=== PATIENT | female | born 1955 | race Caucasian/White ===

== ENCOUNTER 2020-05-28 10:38 | Outpatient (CLI) | payer BC, SELFPAY ==
[2020-05-29 01:03] LABS: SARS-CoV-2 RNA PCR Negative
== END 2020-05-28 10:39 | disposition home or self-care (01) ==
LOC: CHSLAB 10:44
PROVIDERS: PCP Internal Medicine; Visit Provider Internal Medicine
DX: Z20.828 Contact with and (suspected) exposure to other viral communicable diseases (principal)
CPT/HCPCS: 87635; C9803; U0003

== ENCOUNTER 2020-10-01 10:43 | Outpatient (CLI) | payer MEDICARE, BC, SELFPAY ==
--- NOTE | ~2020-10-01 | XR_ITS ---
XR lumbar spine 2-3V DATE: 10/01/2020 11:09 INDICATION: Low back pain for one month TECHNIQUE: AP, lateral, coned lateral lumbosacral views COMPARISON: 01/20/2014 lumbar spine FINDINGS: Slight dextroscoliosis of the lumbar spine. Diffuse osteopenia. Normal alignment of the lumbar spine. No fracture or bone destruction. The lumbar pedicles are intact . There is mild loss of interspace height at L4-5. Minimal degenerative spurring of the lumbar spine. The sacroiliac joints appear normal. Status post cholecystectomy. Radiopaque sutures are noted in the left upper quadrant. IMPRESSION: Osteopenia Slight dextroscoliosis Mild degenerative change, primarily at L4-5 Reviewed, dictated and finalized at location A.
--- NOTE | ~2020-10-01 | XR_ITS ---
EXAMINATION: XR sacrum coccyx min 2V DATE: 10/01/2020 11:09 INDICATION: One month of midline low back pain TECHNIQUE: Frontal, angled frontal and lateral views of the sacrum and coccyx were obtained. COMPARISON: Lumbar spine radiographs dated 10/01/2020 FINDINGS: Alignment is normal. Sacral arches are intact. No fractures. Bilateral sacroiliac joint spaces are no rmal. Mild bilateral hip osteoarthritis Severe facet osteoarthritis bilaterally at L5-S1. A few phleb oliths in the pelvis. IMPRESSION: 1. Normal sacrum and bilateral sacroiliac joints. Reviewed, dictated and finalized at location B.
== END 2020-10-01 10:44 | disposition home or self-care (01) ==
PROVIDERS: PCP Internal Medicine; Visit Provider Internal Medicine
DX: S39.92XA Unspecified injury of lower back, initial encounter (principal); M53.3 Sacrococcygeal disorders, not elsewhere classified
CPT/HCPCS: 72100; 72220

== ENCOUNTER 2020-10-19 07:56 | Outpatient (CLI) | payer MEDICARE, BC, SELFPAY ==
--- NOTE | ~2020-10-19 | DEXA_ITS ---
Bone Density Report Name: Adilia Pruett Age: 65 Sex: Female Ethnicity: White Date of : 1955 Indication: postmenopausal; screening for osteoporosis; Referring Provider: Ponce Chen Study: Bone densitometry was performed. Exam Date: October 19, 2020 Accession number: [id number] Bone Density: Region BMD T-score Z-score Classification AP Spine(L1-L4) 1.279 2.1 3.9 Normal Femoral Neck (Left) 0.750 -0.9 0.6 Normal Total Hip (Left) 0.969 0.2 1.5 Normal Femoral Neck (Right) 0.826 -0.2 1.3 Normal Total Hip (Right) 1.038 0.8 2.0 Normal Femoral Neck Mean 0.788 -0.6 1.0 Normal Total Hip Mean 1.004 0.5 1.7 Normal World Health Organization criteria for BMD impression classify patients as: Normal (T-score at or above -1.0), Osteopenia (T-score between -1.0 and -2.5), or Osteoporosis (T-score at or below -2.5). 10-year Fracture Risk: FRAX not reported because: All T-scores for Spine Total, Hip Total, Femoral Neck at or above -1.0 Clinical Information Provided by Patient: Has used the following medications: Vitamin D, Calcium Patient maximum height was 63 Menopause Age: 50 No regular weight bearing exercise Drinks caffeinated beverages Onset of menses at age 15 Impression: The patient has normal bone mass. Discussion: BONE DENSITY IS ABOVE THE MINIMUM DESIRABLE LEVEL AT ALL SKELETAL SITES TESTED. This patient?s bone mineral density is above the minimum desirable level (T-score -1.0 or better) at all sites measured. The patient should follow a healthful lifestyle (good nutrition with adequate calcium and vitamin D, and appropriate weight-bearing exercise). Follow-Up: Consider repeating this study in 5 years or sooner if there is some new clinical indication. Reported by: Dr. Bridger Clement on 10/19/2020 8:35:00 AM. Reviewed, dictated and finalized at [facility]
--- NOTE | ~2020-10-19 | MM_ITS ---
EXAMINATION: MM screening venessa BI w cathi HISTORY: Screening mammogram TECHNIQUE: Craniocaudal and mediolateral oblique 3-D tomosynthesis images were obtained and synthetic 2-D images were generated. CAD analysis was submitted and interpreted. COMPARISON: No prior mammogram is available for comparison at this institution. BREAST PARENCHYMAL COMPOSITION: There are scattered areas of fibroglandular density. FINDINGS: There is no evidence of suspicious mass, calcification, or architectural distortion to sugg est malignancy in either breast. There has been no suspicious interval change. IMPRESSION: 1. No mammographic evidence of malignancy. 2. Recommend routine screening mammography in one year. BI-RADS Category 1: Negative Reviewed, dictated and finalized at location A.
== END 2020-10-19 07:57 | disposition home or self-care (01) ==
LOC: CHSIMG 07:58
PROVIDERS: PCP Internal Medicine; Visit Provider Internal Medicine
DX: Z78.0 Asymptomatic menopausal state (principal); Z12.31 Encounter for screening mammogram for malignant neoplasm of breast
CPT/HCPCS: 77063; 77067; 77080

== ENCOUNTER 2022-09-14 10:02 | Outpatient (CLI) | payer MEDICARE, SELFPAY ==
--- NOTE | ~2022-09-14 | XR_ITS ---
EXAMINATION: XR chest 2V 09/14/2022 10:57 INDICATION: Persistent cough. Covid infection. PROCEDURE: 2 view chest COMPARISON: Comparison to multiple prior studies sequentially, with oldest reviewed study dated 11/27. FINDINGS: The lungs are clear. The cardiomediastinal silhouette is within normal limits. There are no pleural effusions. There is no pneumothorax suspected. IMPRESSION: 1: NO ACUTE CARDIOPULMONARY DISEASE. Reviewed, dictated and finalized at location L. [employer]
[2022-09-14 10:41] LABS: Eosinophils Absolute Auto 0.06 K/mm3 (0.02-0.50); Eosinophils Percent Auto 1.4 % (1.0-6.0); Hematocrit 41.1 % (35.0-42.0); Hemoglobin 13.1 g/dL (11.7-13.8); Immature Granulocyte Absolute 0.01 K/mm3 (0.00-0.00); Immature Granulocyte Percent A 0.2 % (0.0-0.0); Lymphocytes Absolute Auto 1.58 K/mm3 (1.10-4.50); Lymphocytes Percent Auto 36.5 % (18.0-42.0); Mean Corpuscular HGB Conc 31.9 g/dL (32.0-36.0); Mean Corpuscular Hemoglobin 25.6 pg (27.0-31.0); Mean Corpuscular Volume 80.4 fL (78.0-102.0); Mean Platelet Volume 9.8 fl (9.2-11.8); Monocytes Absolute Auto 0.24 K/mm3 (0.10-0.90); Monocytes Percent Auto 5.5 % (2.0-11.0); Neutrophils Absolute Auto 2.4 K/mm3 (1.7-7.2); Neutrophils Percent Auto 56.4 % (50.0-70.0); Platelet Count Result 204 K/mm3 (150-420); Red Blood Count 5.11 M/mm3 (4.20-5.40); White Blood Count 4.3 K/mm3 (4.8-10.8)
[2022-09-14 12:02] LABS: Alanine Aminotransferase 24 U/L (14-59); Albumin Level 3.3 g/dL (3.4-5.0); Alkaline Phosphatase 108 U/L (46-116); Anion Gap 6 mmol/L (8-16); Aspartate Amino Transferase 14 U/L (15-37); Bilirubin,Total 0.3 mg/dL (0.00-1.00); Blood Urea Nitrogen 12 mg/dL (7-18); Calcium 8.4 mg/dL (8.5-10.1); Carbon Dioxide 32 mmol/L (21-32); Chloride 106 mmol/L (98-108); Estimated Glomerular Filt Rate > 60; Glucose 93 mg/dL (70-99); Osmolality Calculated 297 mOsm/kg (285-295); Potassium 4.9 mmol/L (3.5-5.1); Sodium 144 mmol/L (136-145)
[2022-09-14 12:07] LABS: CRP < 0.5 mg/dL (0.0-0.9)
== END 2022-09-14 10:03 | disposition home or self-care (01) ==
LOC: CHSLAB 10:06 → CHSIMG 10:07
PROVIDERS: PCP Internal Medicine; Visit Provider Internal Medicine
DX: J18.9 Pneumonia, unspecified organism (principal); U07.1 COVID-19
CPT/HCPCS: 36415; 71046; 80053; 85025; 86140

== ENCOUNTER 2022-09-22 11:41 | Outpatient (CLI) | payer MEDICARE, SELFPAY ==
[2022-09-22 12:09] LABS: Basophils Absolute Auto 0.02 K/mm3 (0.00-0.10); Basophils Percent Auto 0.2 % (0.0-1.0); Eosinophils Absolute Auto 0.05 K/mm3 (0.02-0.50); Eosinophils Percent Auto 0.4 % (1.0-6.0); Hematocrit 44.3 % (35.0-42.0); Hemoglobin 14.3 g/dL (11.7-13.8); Immature Granulocyte Absolute 0.15 K/mm3 (0.00-0.00); Immature Granulocyte Percent A 1.1 % (0.0-0.0); Lymphocytes Percent Auto 20.6 % (18.0-42.0); Mean Corpuscular HGB Conc 32.3 g/dL (32.0-36.0); Mean Corpuscular Hemoglobin 25.7 pg (27.0-31.0); Mean Corpuscular Volume 79.7 fL (78.0-102.0); Monocytes Absolute Auto 0.55 K/mm3 (0.10-0.90); Monocytes Percent Auto 4.2 % (2.0-11.0); Neutrophils Absolute Auto 9.7 K/mm3 (1.7-7.2); Neutrophils Percent Auto 73.5 % (50.0-70.0); Platelet Count Result 279 K/mm3 (150-420); Red Blood Count 5.56 M/mm3 (4.20-5.40); Red Cell Distribution Width 13.2 % (11.6-14.4); White Blood Count 13.1 K/mm3 (4.8-10.8)
[2022-09-22 12:22] LABS: D Dimer 0.48 mg/L (0.19-0.50)
[2022-09-22 12:47] LABS: Alanine Aminotransferase 22 U/L (14-59); Albumin Level 3.2 g/dL (3.4-5.0); Alkaline Phosphatase 120 U/L (46-116); Anion Gap 7 mmol/L (8-16); Aspartate Amino Transferase 18 U/L (15-37); Bilirubin,Total 0.3 mg/dL (0.00-1.00); Blood Urea Nitrogen 26 mg/dL (7-18); Calcium 8.2 mg/dL (8.5-10.1); Carbon Dioxide 32 mmol/L (21-32); Chloride 104 mmol/L (98-108); Estimated Glomerular Filt Rate > 60; Glucose 108 mg/dL (70-99); Osmolality Calculated 301 mOsm/kg (285-295); Potassium 4.1 mmol/L (3.5-5.1); Sodium 143 mmol/L (136-145); Total Protein 5.8 g/dL (6.4-8.2)
== END 2022-09-22 11:42 | disposition home or self-care (01) ==
LOC: CHSLAB 11:42
PROVIDERS: PCP Internal Medicine; Visit Provider Internal Medicine
DX: R06.00 Dyspnea, unspecified (principal); R53.83 Other fatigue; U07.1 COVID-19
CPT/HCPCS: 36415; 80053; 85025; 85380

== ENCOUNTER 2023-09-26 14:14 | Outpatient (CLI) | payer MEDICARE, SELFPAY ==
--- NOTE | ~2023-09-26 | XR_ITS ---
EXAMINATION: XR knee LT 3V DATE: 09/26/2023 14:40 INDICATION: Bilateral knee pain post fall TECHNIQUE: 1. AP, lateral and sunrise views of the left knee were obtained. 2. AP, lateral and sunrise views of the right knee were obtained. The bilateral patellar views were o btained on a single image. COMPARISON: None. FINDINGS: Bone alignment is normal at both knees. No fractures. There is bilateral mild patellofemoral osteoart hritis with joint spaces are slightly more prominent on the left. Tiny heterotopic ossicle along the medial margin of the right medial tibial metaphysis projecting over and aligned along the axis of the medial collateral ligament suggesting sequela of chronic sprain. There small enthesophytes along the anterior margin of the patella. Soft tissues are unremarkable with no joint effusions at either knee . IMPRESSION: 1. Mild bilateral patellofemoral osteoarthritis. No joint effusion or acute osseous abnormality at ei ther knee. 2. Small heterotopic ossicle projecting over the right medial collateral ligament which could represe nt sequela of chronic sprain. Reviewed, dictated and finalized at location B. IMPRESSION: 1. Mild bilateral patellofemoral osteoarthritis. No joint effusion or acute oss eous abnormality at either knee. 2. Small heterotopic ossicle projecting over the right medial collateral ligame nt which could represent sequela of chronic sprain.
--- NOTE | ~2023-09-26 | XR_ITS ---
XR knee RT 3V 09/26/2023 14:40 Indication: Bilateral knee pain. Status post fall. Procedure: 2 view right knee Comparison: No prior studies for comparison. Findings: There is mild osteoarthritis of the right hip. No fracture or traumatic malalignment. No si gnificant joint effusion. No foreign bodies. Impression: 1: Mild osteoarthritis of the right knee. Reviewed, dictated and finalized at location A. Impression: 1: Mild osteoarthritis of the right knee.
== END 2023-09-26 14:15 | disposition home or self-care (01) ==
LOC: CHSIMG 14:18
PROVIDERS: PCP Internal Medicine; Visit Provider Internal Medicine
DX: M25.561 Pain in right knee (principal); M25.562 Pain in left knee; M17.0 Bilateral primary osteoarthritis of knee
CPT/HCPCS: 73562

== ENCOUNTER 2023-10-25 01:24 | Day surgery (SDC) | payer MEDICARE, SELFPAY ==
[2023-10-09 13:06] VITALS: BMI 34.9
[2023-10-25 08:34] VITALS: BP 157/83; PULSE 72; RESP 18; TEMP 36.1; O2SAT 99
--- NOTE | 2023-10-25 08:37 | PM.IMHP ---
H&P: HPI History of Present Illness Date/Time: 10/25/23 08:37 Chief Complaint: family history of colon cancer Narrative: this is a 60 old woman who presents for colonoscopy. Her last colonoscopy was about 10 years ago. She recently found out sister had colon cancer was treated with partial colectomy. She denies any hematochezia or melena. Review of Systems Review of Systems: All systems reviewed & are unremarkable except as noted in HPI and below Constitutional: Constitutional: Denies chills, Denies fever(s), Denies headache(s) and Denies weight loss Eyes: Eyes: Denies change in vision ENT: Denies dizziness, Denies headache(s), Denies neck mass and Denies throat swelling Cardiovascular: Cardiovascular: Denies chest pain, Denies lightheadedness and Denies dyspnea Respiratory: Respiratory: Denies cough, Denies dyspnea and Denies wheezing Gastrointestinal: Gastrointestinal: Denies abdominal pain, Denies change in bowel habits, Denies nausea and Denies vomiting Genitourinary: Genitourinary: Denies hematuria and Denies dysuria Musculoskeletal: Musculoskeletal: Reports as per HPI Integumentary/Breasts: Skin/Breast: Reports as per HPI Neurologic: Denies dizziness and Denies headache(s) Allergic/Immunologic: Allergic/Immunologic: Denies throat swelling and Denies wheezing PMF Past Medical History Medical History History of gastrectomy LISBETH (obstructive sleep apnea) Surgical History Surgical History History of repair of hiatal hernia Hx of appendectomy Hx of cholecystectomy Family History Family History Father Heart disease Crohn's disease Mother Hypertension Grandparent Diabetes mellitus Heart disease Other Carcinoma of colon Social History Social History Smoking status: Never smoker Alcohol intake: never Substance use: never Substance use type: does not use Living arrangements: with family Spiritual care concerns: No Meds Home Medications and Allergies Home Medications Medication Instructions Recorded Confirmed Type albuterol sulfate 90 mcg/actuation 1 inh inhalation Q4H 11/21/22 10/25/23 History aerosol inhaler dexlansoprazole 60 mg 60 mg PO DAILY 11/21/22 10/25/23 History capsule,biphase delayed release (Dexilant) montelukast 10 mg tablet 10 mg PO DAILY 11/21/22 10/25/23 History multivitamin 1 tablet PO DAILY 11/21/22 10/25/23 History ascorbate calcium (vitamin C) 500 500 mg PO DAILY 12/01/22 10/25/23 History mg tablet inhalational spacing device #1 ea 12/01/22 10/25/23 Rx budesonide-formoterol HFA 160 2 puff inhalation Q12H #10.2 grams 01/18/23 10/25/23 Rx mcg-4.5 mcg/actuation aerosol inhaler (Symbicort) Allergies Allergy/AdvReac Type Severity Reaction Status Date / Time amoxicillin [From Augmentin] AdvReac Intermediate Rash Verified 10/25/23 08:29 clavulanic acid AdvReac Intermediate Nausea Verified 10/25/23 08:29 [From Augmentin] Exam Const: General: no acute distress and alert Orientation/consciousness: patient oriented x3 HENMT: Head: normocephalic and atraumatic Ears: hearing grossly normal bilaterally Face/Nose/Sinus: Normal nares present Mouth: Yes Normal oral and palatal mucosa present Eyes: Periorbital: periorbital findings normal Sclera: sclerae normal EOM: EOMs intact bilaterally Neck: Neck: normal visual inspection, no lymphadenopathy and trachea midline Chest: Chest palpation & inspection: normal inspection of the chest Resp: Effort & Inspection: normal respiratory effort Auscultation: clear to auscultation bilaterally Cardio: Jugular venous distension: no JVD Rate: regular rate Rhythm: regular rhythm Heart sounds: S1 normal heart sound present and S2 normal heart sound present Peripheral
[2023-10-25] MEDS: LACTATED RINGERS 1,000 ML 150 ML IV CONT (08:46)
--- NOTE | 2023-10-25 09:06 | WPDANESEPPF ---
Anes - Initial Pre Proc Eval Procedure: Operation Date: 10/25/23 10:00 Proposed Procedures p Screening Colonoscopy - Sukhi Marshall DO Date/Time: 10/25/23 09:06 Surgeon: Sukhi Marshall DO Pre Op Diagnosis: neoplasm screening Patient Data Age: 68 Gender: F Height: 1.57 m Weight: 94.5 kg Last Vital Signs Temp 97.0 F L 10/25/23 08:34 Pulse 72 10/25/23 08:34 Resp 18 10/25/23 08:34 BP 157/83 H 10/25/23 08:34 Pulse Ox 99 10/25/23 08:34 O2 Del Method Room Air 10/25/23 08:34 Allergies Allergy/AdvReac Type Severity Reaction Status Date / Time amoxicillin [From Augmentin] AdvReac Intermediate Rash Verified 10/25/23 08:29 clavulanic acid AdvReac Intermediate Nausea Verified 10/25/23 08:29 [From Augmentin] Home Medications Medication Instructions Recorded Confirmed Type albuterol sulfate 90 mcg/actuation 1 inh inhalation Q4H 11/21/22 10/25/23 History aerosol inhaler dexlansoprazole 60 mg 60 mg PO DAILY 11/21/22 10/25/23 History capsule,biphase delayed release (Dexilant) montelukast 10 mg tablet 10 mg PO DAILY 11/21/22 10/25/23 History multivitamin 1 tablet PO DAILY 11/21/22 10/25/23 History ascorbate calcium (vitamin C) 500 500 mg PO DAILY 12/01/22 10/25/23 History mg tablet inhalational spacing device #1 ea 12/01/22 10/25/23 Rx budesonide-formoterol HFA 160 2 puff inhalation Q12H #10.2 grams 01/18/23 10/25/23 Rx mcg-4.5 mcg/actuation aerosol inhaler (Symbicort) Patient hx anesthesia problems: none Family hx anesthesia problems: none Results Review: All pre-operative results and documents have been reviewed as part of the pre-operative evaluation. [facility] Past Medical History Medical History History of gastrectomy LISBETH (obstructive sleep apnea) Surgical History Surgical History History of repair of hiatal hernia Hx of appendectomy Hx of cholecystectomy Family History Family History Father Heart disease Crohn's disease Mother Hypertension Grandparent Diabetes mellitus Heart disease Other Carcinoma of colon Social History Social History Smoking status: Never smoker Alcohol intake: never Substance use: never Substance use type: does not use Living arrangements: with family Spiritual care concerns: No Anes - Eval Final PreProcedure Day of Procedure 10/25/23 09:06 Patient weight: obese Heart: regular rate and rhythm Lungs: clear to auscultation Airway: Mallampati scale class II Neurological: alert and oriented Last oral intake: >/= 8 hours ASA classification: III Emergent: no Anesthetic plan: proceed Anesthesia type and monitoring: general GIVS and standard monitoring Results Review: All pre-operative results and documents have been reviewed as part of the pre-operative evaluation. Informed Consent: The patient's anesthetic plan and its attendant risks and benefits were discussed with the patient/family/POA. Questions were solicited and answers provided to the satisfaction of the patient/family/POA.
[2023-10-25 09:51] VITALS: BP 132/63; PULSE 72; RESP 13; O2SAT 100
[2023-10-25 10:01] VITALS: BP 143/72; PULSE 68; RESP 19; O2SAT 100
[2023-10-25 10:11] VITALS: BP 157/75; PULSE 71; RESP 18; O2SAT 100
== END 2023-10-25 10:20 | disposition home or self-care (01) ==
PROVIDERS: PCP Internal Medicine; Visit Provider Surgery
PROC: 0DJD8ZZ Inspection of Lower Intestinal Tract, Via Natural or Artificial Opening Endoscopic (ICD-10-PCS; CPT 45378; principal; 2023-10-25 10:00)
DX: Z12.11 Encounter for screening for malignant neoplasm of colon (principal); K62.1 Rectal polyp; G47.33 Obstructive sleep apnea (adult) (pediatric); E66.9 Obesity, unspecified; Z68.38 Body mass index [BMI] 38.0-38.9, adult; Z79.51 Long term (current) use of inhaled steroids; Z98.890 Other specified postprocedural states; Z90.3 Acquired absence of stomach [part of]; Z90.49 Acquired absence of other specified parts of digestive tract; Z80.0 Family history of malignant neoplasm of digestive organs; Z82.49 Family history of ischemic heart disease and other diseases of the circulatory system
CPT/HCPCS: 45380; 88305; J2001; J2704; J7120

== ENCOUNTER 2024-01-08 09:08 | Outpatient (CLI) | payer MEDICARE, SELFPAY ==
--- NOTE | 2024-01-08 10:45 | NEURO_ITS ---
Impression: # Complains of left foot drop for over 5 years. Non-diabetic. # No left peroneal responses obtained including F-waves. # Needle/EMG exam revealed no neurogenic changes. # Findings suggestive of old vs higher involvement. MRI suggested. Nerve Conduction Studies Anti Sensory Summary Table Stim Site NR Peak (ms) P-T Amp (?V) Site1 Site2 Delta-P (ms) Dist (cm) Scott (m/s) Left Sup Fibular Anti Sensory (Ant Lat Mall) 14 cm 3.0 16.2 14 cm Ant Lat Mall 3.0 16.0 53 Right Sup Fibular Anti Sensory (Ant Lat Mall) 14 cm 3.3 10.1 14 cm Ant Lat Mall 3.3 16.0 48 Left Sural Anti Sensory (Lat Mall) Calf 3.4 18.1 Calf Lat Mall 3.4 16.0 47 Right Sural Anti Sensory (Lat Mall) Calf 3.8 18.1 Calf Lat Mall 3.8 16.0 42 Motor Summary Table Stim Site NR Onset (ms) O-P Amp (mV) Site1 Site2 Delta-0 (ms) Dist (cm) Scott (m/s) Left Peroneal Motor (Vastus Med) NO RESPONSE Ankle NR Popit Ankle 0.0 Popit NR Right Peroneal Motor (Vastus Med) Ankle 3.3 2.9 Popit Ankle 7.9 37.0 47 Popit 11.2 2.2 Left Tibial Motor (Abd Sena Brev) Ankle 3.7 5.2 Knee Ankle 8.8 41.0 47 Knee 12.5 2.8 Right Tibial Motor (Abd Sena Brev) Ankle 3.4 3.2 Knee Ankle 8.4 39.0 46 Knee 11.8 5.2 F Wave Studies NR F-Lat (ms) L-R F-Lat (ms) Left Peroneal (Mrkrs) (EDB) NO RESPONSE NR Right Peroneal (Mrkrs) (EDB) 47.97 Left Tibial (Mrkrs) (Abd Hallucis) 47.69 0.99 Right Tibial (Mrkrs) (Abd Hallucis) 48.68 0.99 EMG Side Muscle Nerve Root Ins Act Fibs Amp Dur Recrt Comment Right AntTibialis Dp Br Fibular L4-5 Nml Nml Nml Nml Nml Right Gastroc Tibial S1-2 Nml Nml Nml Nml Nml Right Fibularis Long Sup Br Fibular L5-S1 Nml Nml Nml Nml Nml Right Flex Dig Long Tibial L5-S2 Nml Nml Nml Nml Nml Right Ext Dig Brev Dp Br Fibular L5, S1 Nml Nml Nml Nml Nml Left AntTibialis Dp Br Fibular L4-5 Nml Nml Nml Nml Nml Left Gastroc Tibial S1-2 Nml Nml Nml Nml Nml Left Fibularis Long Sup Br Fibular L5-S1 Nml Nml Nml Nml Nml Left Flex Dig Long Tibial L5-S2 Nml Nml Nml Nml Nml Left Ext Dig Brev Dp Br Fibular L5, S1 Nml Nml Nml Nml Nml Right QuadratusFem QuadFemoris L4-5, S1 Nml Nml Nml Nml Nml Left QuadratusFem QuadFemoris L4-5, S1 Nml Nml Nml Nml Nml MTDD
== END 2024-01-08 09:09 | disposition home or self-care (01) ==
PROVIDERS: PCP Internal Medicine; Visit Provider Internal Medicine
DX: M21.372 Foot drop, left foot (principal); M54.50 Low back pain, unspecified
CPT/HCPCS: 95886; 95910

== ENCOUNTER 2025-07-07 13:56 | Outpatient (CLI) | payer MEDICARE, SELFPAY ==
--- OUTSIDE RECORDS SUMMARY | 2025-07-07 14:02 | XMS_ITS | Data Portability ---
Author Organization [place] [email or web address] [facility], Main Office Address [address] [place] [address] Care Team Providers Care Cell Operator Name Role Phone ABDOULAYE PIKE Primary Care Provider [phone] ABDOULAYE PIKE Referring Provider Assessment Encounter Date Assessment Date Assessment LastModified by Organization Details LastModified Time 11/13/2023 11/13/2023 68-year-old patient presents today with left knee pain that has been going on for a few years. She states she has had multiple falls in the past and tends to always land directly onto the knees. She last had a fall in August and landed on concrete. She has had pain in the left knee that has not gone away since. She states that the pain keeps her awake at night. It is mostly painful when she does bending or has to walk far distances. For treatment she has tried Tylenol and ibuprofen, which does not help. Review of systems per patient questionnaire Imaging: X-rays reviewed show no acute bony abnormality or fracture. Mild degenerative changes under the patella. Physical exam: Tenderness with palpitation around bottom edge of the patella. some bruising noted in this area. 1+ edema. Range of motion 0-130. Pain with deep flexion. Negative Shweta's. Stable Zainab's, varus/valgus stress. Sensation intact. We will start with a course of physical therapy to help stretch and strengthen her knee. We will also order meloxicam for anti-inflammatory therapy. She states that pain is keeping her awake at night so we discussed the risks and benefits of a cortisone injection. She elected to proceed with the injection today. We will see her back in 4-6 weeks to check her progress. [email or web address] Not available 11/13/2023 10:58:13 12/18/2023 12/18/2023 68-year-old female presents for follow-up of her left knee. We have been treating her with a course of anti-inflammatori es, physical therapy, and she also got a cortisone injection last time. She reports knee feels better, currently rates her pain as 5/10. She also reports that during physical therapy they noticed she had a footdrop with weakness of the tibia ant and EHL, and her PCP ordered an EMG and MRI. Range of motion 0-130, nonantalgic gait. She does have some foot drop with weakness of the tibia and EHL, 4 out 5. Sensation intact to light touch throughout. At this point, she has had improvement with conservative management and she may continue to do that. We renewed her meloxicam physical therapy orders. We can see her back as needed, or if she has any further questions or concerns after obtaining the results of the scan. She is in agreement with the plan. Not available 12/18/2023 11:16:42 02/20/2024 02/20/2024 68-year-old female presents for follow-up of her left knee. She has been doing some physical therapy and also got an injection back in October. She stopped taking meloxicam because that was bothering her stomach. She got an MRI and is here to review that. Exam unchanged from previous visit. She is in an AFO for her footdrop. She has good motion of her knee, some diffuse tenderness medially and laterally. Range of motion 0-130, negative Shweta's. 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 There is some signal in the posterior medial meniscus which could be a ramp lesion At this point her knee is doing okay. She is getting treatment for the foot drop. She reports the PT helped her knee but flared up her back and made those symptoms worse. We discussed that she may continue that it as tolerated but should continue to follow-up with her facility specialist. She may follow-up with us as needed. Not available 02/20/2024 15:06:44 Plan of Treatment Reminders Order Date Submit Date Provider Last Modified By Organization Details Last Modified Time Details Appointments None recorded. Lab None recorded. Referral physical therapist referral - continue PT 2023 024 [email or web address] [facility], [address] [place], [address], 4 23:28:15 physical therapist referral - Please see pt for Nettie knee 2023 024 [facility], [address] [place], [address], 4 10:05:22 Procedures injection/a spiration joint/bursa (PROC) 2023 024 [email or web address] In-Office Order, Internal Use Only DO Not Attach Compendium DO Not Attach Compendium, Do Not Delete/merge, [id number] 10:47:18 Surgeries None recorded. Imaging None recorded. Medication Orders Mobic 15 mg tablet 2023 024 [email or web address] [facility], [address] [place] [address], [id number], 4 23:28:15 bupivacaine HCl 0.5 % (5 mg/mL) injection solution 2023 024 [email or web address] [facility], [address] [place] [address], [address], 4 10:58:36 Kenalog 10 mg/mL suspension for injection 2023 024 [email or web address] [facility], [address] [place] [address], [id number], 4 10:58:36 Mobic 15 mg tablet 2023 024 [email or web address] [facility], [address] [place] [address], [id number], 4 16:12:24 Patient TargetsNo targets recorded. Patient InstructionsNo instructions recorded. Reason for Referral Physical Therapist Referral for Pain of left knee joint Nettie knee Please see pt for Nettie knee Referring Physician: Bonnie Pulido, Orthopedic Surgery, Encounter Date: 11/13/2023 Physical Therapist Referral for Pain of left knee joint continue PT Referring Physician: Ayaan Jacobo, Orthopedic Surgery, Encounter Date: 12/18/2023 Results Created Date Observation Date Name Description Value Unit Range Abnormal Flag Note LastModifiedBy Organization Detail LastModifiedTime 02/07/20 24 02/02/2024 MRI, knee, w/o contr ast No observ ation record ed. [email or web address] Not Available 01/14 09:27:49 Result Notes None recorded. Problems Name Problem SNOMED Code Status Onset Date Resolution Date Notes Provider Name and Address Organization Details Recorded Time Osteoarthr itis 540906263 Active Not Available [facility] 3 13:57:56 Pain in limb 00078687 Active Not Available [facility] 3 13:57:56 Pain of left knee joint 5915833234990 07 Active 2023 DAYA Martinez, [employer] 4 10:36:09 Problem Notes None recorded. Procedures Surgical History Date Name Laterality Status Provider Name and Address Organization Details Recorded Time 11/13/19 24 Ortho - Cortisone Injection completed Bonnie Pulido, MANNY [address] [facility], [facility] [address], [place], [address], [employer] 11/13/2023 10:55:18 Gallbladder Surgery completed DAYA Martinez [employer] 11/13/2023 10:35:31 Appendectomy completed DAYA Martinez [employer] 11/13/2023 10:35:37 Imaging Results None recorded. Procedure Notes None recorded. Medical Equipment None Reported. Medications Name Sig Start Date Stop Date Status Note LastModified by Organization Details LastModified Time amoxicillin 500 mg capsule 11/12 completed Not Available Not Available Not Available prednisone 10 mg tablet 11/12 completed Not Available Not Available Not Available atorvastati n 10 mg tablet 11/12 completed Not Available Not Available Not Available azithromyci n 250 mg tablet 11/12 completed Not Available Not Available Not Available ranitidine 300 mg tablet 12/05 completed Not Available Not Available Not Available meloxicam 15 mg tablet TAKE 1 TABLET BY MOUTH DAILY active Not Available Not Available No t Available famotidine 40 mg tablet TAKE 1 TABLET BY MOUTH DAILY AT BEDTIME active Not Available Not Available No t Available bupivacaine HCl 0.5 % (5 mg/mL) injection solution Take 4 mL by injection route. 2023 active Not Available Not Available Not Avai lable prednisone 20 mg tablet 02/18 completed Not Available Not Available Not Available sulfamethox azole 800 mg-trimetho prim 160 mg tablet 12/05 completed Not Available Not Available Not Available triamcinolo ne acetonide 0.1 % topical cream 12/05 completed Not Available Not Available Not Available alprazolam 0.25 mg tablet TAKE ONE OR TWO TABLETS BY MOUTH 1 HOUR BEFORE PROCEDURE active Not Available Not Available No t Available Kenalog 10 mg/mL suspension for injection Take 1 mL by injection route. 2023 active [facility]: [phone] Not Available Not Available Not Available calcitriol 0.5 mcg capsule 11/12 completed Not Available Not Available Not Available montelukast 10 mg tablet TAKE 1 TABLET BY MOUTH DAILY active Not Available Not Available No t Available diclofenac sodium 50 mg tablet,sergio yed release 11/12 completed Not Available Not Available Not Available metoprolol succinate ER 25 mg tablet,exte nded release 24 hr 11/12 completed Not Available Not Available Not Available methylpredn isolone 4 mg tablets in a dose pack 11/12 completed Not Available Not Available Not Available Vitamin D2 1,250 mcg (50,000 unit) capsule 12/05 completed Not Available Not Available Not Available ketoconazol e 2 % topical cream 11/12 completed Not Available Not Available Not Available amoxicillin 875 mg-potassiu m clavulanate 125 mg tablet 11/12 completed Not Available Not Available Not Available Ventolin HFA 90 mcg/actuati on aerosol inhaler 11/12 completed Not Available Not Available Not Available azithromyci n 500 mg tablet 11/12 completed Not Available Not Available Not Available duloxetine 20 mg capsule,del ayed release TAKE 1 CAPSULE BY MOUTH EVERY EVENING active Not Available Not Available No t Available Symbicort 160 mcg-4.5 mcg/actuati on HFA aerosol inhaler 11/12 completed Not Available Not Available Not Available Dymista 137 mcg-50 mcg/spray nasal spray 11/12 completed Not Available Not Available Not Available Vitals Date Recorded Body height Body mass index (BMI) Body weight Pain severity - 0-10 verbal numeric rating [Score] - Reported Provider Name and Address Organization Details Last Updated DateTime 11/13/2023 152.4 cm 37.1 kg/m2 03962.55 g 7 DAYA Martinez [facility] [employer] 11/13/2023 10:32:23 Date Recorded Body height Body mass index (BMI) Body weight Pain severity - 0-10 verbal numeric rating [Score] - Reported Provider Name and Address Organization Details Last Updated DateTime 12/18/2023 152.4 cm 38.1 kg/m2 42018.51 g 5 DAYA Martinez [facility] [employer] 12/18/2023 10:46:37 Date Recorded Body height Body mass index (BMI) Body weight Provider Name and Address Organization Details Last Updated DateTime 02/20/2024 154.94 cm 39.7 kg/m2 68410.4 g Gretta Peace [facility]NA [facility] [employer] 02/20/2024 14:20:26 Social History Question Answer Notes LastModified by Organizat ion Details LastModified Time Tobacco Smoking Status Unknown If Ever Smoked DAYA Martinez null, [facility] [employer] [facility] 11/13/2023 10:35:21 What Was The Date Of Your Most Recent Tobacco Screening? 11/13/2023 [email or web address] Information not available 11/13/2023 Sex: Unknown Functional Status Question Answer Note LastModified by Organization D etails LastModified Time What is your level of alcohol consumption? None [email or web address] Information not available 11/13/2023 Mental Status None recorded. Family History Relationship Description Onset Age of this Age Resolved Age Notes LastModified by Organization Details LastModified Time Maternal Grandmother Heart disease [email or web address] Not available 2023 10:34:29 Sister Family history of malignant neoplasm [email or web address] Not available 2023 10:34:37 Medical History Condition Response ARTHRITIS Y Gynecological HistoryNo gynecological history recorded. Obstetrics History GPAL:G 0 P 0 0 0 0 Past Encounters Encounter ID Performer Location Encounter Start Date Encounter Closed Date Diagnosis/Indication Diagnosis SNOMED-CT Code Diagnosis ICD10 Code Diagnosis IMO Codes Diagnosis Note [id number] Ayaan Jacobo MD [facility] [place] [address] [place] [address] 11/13/2023 10:12:18 11/13/2023 10:52:01 Pain of left knee joint 3906580652 65006 M25.315 [id number] Ayaan Jacobo MD [facility] [place] [address] [place] [address] 12/18/2023 10:43:46 12/18/2023 11:14:01 Pain of left knee joint 5610510900 06349 M25.361 [id number] Ayaan Jacobo MD [facility] [place] [address] [place] [address] 02/20/2024 14:17:41 02/20/2024 14:51:47 Pain of left knee joint 2761549924 45043 M25.562 Health Concerns Section Related Observation LastModified by Organization Detai ls LastModified Time None Recorded Concern Status LastModified by Organization Details LastModified Time None Recorded Advance Directives Directive None Recorded Payers Insurance Date Sequence Insurance Name Policy Number Policy Ramos Covered Member ID Ramos Member ID Guarantor Name 11/08/2023 1 [facility] ([place]) [id number] Sukhi Pruett [id number] Adilia Pruett 02/20/2024 1 [facility] (MEDICARE REPLACEMENT/A DVANTAGE - HMO) [id number] Adilia Pruett [id number] Adilia Pruett OBGyn Episode No OBEpisode recorded.
--- OUTSIDE RECORDS SUMMARY | 2025-07-07 14:02 | XMS_ITS | Encounter Summary ---
Author Organization [facility] Address [facility] [place] [address] Care Team Providers Care Cone Cleaner Name Role Phone Bonnie Pulido NP Primary Care Provider [phone] Ponce Chen MD Primary Care Provider [phone] Encounter Details Date Type Department Care Team (Late st Contact Info) Description 09/29/2017 Abstract [facility] CONVERSION [address] [place] [address] , Generic ConversionMD Social History Tobacco Use Types Packs/Day Years Used Date Smoking Tobacco: Never Assessed Comments Unknown Sex and Gender Information Value Date Recorded Sex Assigned at Female 01/28/2025 10:33 AM CDT Legal Sex Female 5:09 PM CDT Gender Identity Female 01/28/2025 10:33 AM CDT Sexual Orientation Not on file documented as of this encounter Plan of Treatment Not on file documented as of this encounter Visit Diagnoses Not on filedocumented in this encounter Care Teams Cone Cleaner Relationship Specialty Start Date End Date Bonnie Pulido NP [address] [place] [phone] PCP - General NURSE PRACTITIONER 11/15/23 01/29/25 Ponce Chen MD [address] [place] [address] PCP - General INTERNAL MEDICINE 01/30/25 documented as of this encounter
--- OUTSIDE RECORDS SUMMARY | 2025-07-07 14:02 | XMS_ITS | Clinical Summary ---
Author Organization [facility] Address [facility] [place] [address] Care Team Providers Care Glass Engraver Name Role Phone Ponce Chen MD Primary Care Provider [phone] Allergies No known active allergies Medications montelukast (SINGULAIR) 10 MG tablet Take 1 tablet (10 mg total) by mouth daily. Active DULoxetine (CYMBALTA) 20 MG capsule Take 1 capsule (20 mg total) by mouth every evening. 5 Active dexlansoprazole (DEXILANT) 30 MG capsule Take 1 capsule (30 mg total) by mouth daily. Has 3 pills in 6 months Active rosuvastatin (CRESTOR) 5 MG tablet Take 1 tablet (5 mg total) by mouth daily. 5 Active propranolol LA (INDERAL LA) 80 MG 24 hr capsule Take 1 capsule (80 mg total) by mouth nightly. 30 capsule 5 Active spironolactone- hydroCHLOROthia zide (ALDACTAZIDE) 25-25 MG tablet Take 1 tablet by mouth daily. 5 Active ALPRAZolam (XANAX) 0.25 MG tablet TAKE ONE OR TWO TABLETS BY MOUTH 1 HOUR BEFORE PROCEDURE Active Active Problems Problem Noted Date Diagnosed Date Knee pain 12/04/2023 Family History Medical History Relation Comments Heart Attack Father Hypertension Mother Kidney Disease Mother Heart Attack Sister Relation Status Comments Father Mother Alive Sister Social History Tobacco Use Types Packs/Day Years Used Date Smoking Tobacco: Never Smokeless Tobacco: Never Tobacco Cessation:Counseling Given: Not Answered Alcohol Use Standard Drinks/Week Comments Not Currently 0 (1 standard drink = 0.6 oz pur e alcohol) Comments No Sex and Gender Information Value Date Recorded Sex Assigned at Female 01/28/2025 10:33 AM CDT Legal Sex Female 5:09 PM CDT Gender Identity Female 01/28/2025 10:33 AM CDT Sexual Orientation Not on file Last Filed Vital Signs Vital Sign Reading Time Taken Comments Blood Pressure 132/78 01/30/2025 8:47 AM CDT Pulse 63 01/11/2025 1:15 PM CDT Temperature 18.9 C (66 F) 01/30/2025 8:19 AM CDT Respiratory Rate 18 01/30/2025 8:19 AM CDT Oxygen Saturation 98% 01/30/2025 8:19 AM CDT Inhaled Oxygen Concentration - - Weight 106.1 kg (234 lb) 03/18/2025 8:00 AM CDT Height 154.9 cm (5' 1) 03/18/2025 8:00 AM CDT Body Mass Index 44.21 03/18/2025 8:00 AM CDT Plan of Treatment Health Maintenance Due Date Last Done Comments Colorectal Cancer Screening Colonoscopy (10 Years) 1955 Hepatitis C 1973 DTaP, Tdap and Td Vaccines ( 1 - Tdap) 1974 Mammogram Screening 1995 Pneumococcal Vaccine: 50+ Years (1 of 1 - PCV) 2005 Zoster Vaccines (1 of 2) 2005 RSV Immunization or 60+ Years (1 - Risk 60-74 years 1-dose series) 2015 Annual Medicare Wellness Visit 2020 Dexa Scan (General) 2020 COVID-19 Vaccine ( - 2024-2 6 season) 2025 Influenza Adult (#1) 2025 07/02/2023, 04/19/2018 Hepatitis A Vaccines Aged Out No long er eligible based on patient's age to complete this topic Meningococcal B Vaccine Aged Out No l onger eligible based on patient's age to complete this topic Meningococcal Vaccine Aged Out No laury edison eligible based on patient's age to complete this topic RSV Immunizations Under 20 Months Aged Out No longer eligible b ased on patient's age to complete this topic Insurance [facility] MEDICARE Care Teams Glass Engraver Relationship Specialty Start Date End Date Ponce Chen MD [address] [place] [address] PCP - General INTERNAL MEDICINE 01/30/25
--- OUTSIDE RECORDS SUMMARY | 2025-07-07 14:03 | XMS_ITS | Patient Health Record ---
Author Organization [facility] Address [address] [place], [place] [address] Care Team Providers Care Supply Chain Associate Name Role Phone ENEDELIA BAKER Unavailable [phone] Ponce Chen Unavailable Unavailable Allergies Allergen (clinical drug ingredient) Drug/Non Drug Allergy documented on EMR Reaction Allergy Type Onset Date Status Latex Latex Unknown Allergy 06/19/2012 active Reason For Referral No Information Medications Medication SIG (Take, Route, Frequency, Duration) Notes Start Date End Date Status citalopram 10 MG Oral Tablet ORAL citalopram 10 MG Oral TabletOriginal Medicationcitalopram 10 MG Oral Tablet *Reorder from [facility] ([facility]) for eRx and Interaction Alerts* 06/19/2012 Active Medrol Dosepak ORAL Medrol DosepakOr iginal MedicationMedrol Dosepak *Reorder from [facility] ([facility]) for eRx and Interaction Alerts* 06/19/2012 Active montelukast 4 MG Chewable Tablet [Singulair] ORAL montelukast 4 MG Chewable Tablet [Singulair]Original Medicationmontelukast 4 MG Chewable Tablet [Singulair] *Reorder from [facility] ([facility]) for eRx and Interaction Alerts* 06/19/2012 Active Immunizations Vaccine Route Administration Date Status Comme nts Influenza, high dose seasonal Unknown 07/02/2023 Admini stered Social History Social History Additional Details Category Social Info Options Details Migrated Social History Migrated Social History Smoking Status : Never smoked , History of tobacco use : Plan Of Treatment No Information Insurance Providers Payer Name Payer Address Payer Phone Subscriber Number Group Number Insured Name Patient Relationship to Insured Coverage Start Date Coverage End Date [facility] [address] [address] [place], [place] [id number] HUGO BURGER Self - patient is the insured
[2025-07-07 14:12] LABS: Add Urine Microscopic? YES; Appearance Urine Clear (Clear); Glucose Urine UA Negative (Negative); Hematocrit 43.1 % (35.0-42.0); Hemoglobin 13.6 g/dL (11.7-13.8); Leukocyte Esterase Ur Negative (Negative); Mean Corpuscular HGB Conc 31.6 g/dL (32-36); Mean Corpuscular Hemoglobin 25.2 pg (27.0-31.0); Mean Corpuscular Volume 80.0 fL (78.0-102.0); Nitrate Urine Negative (Negative); Platelet Count Result 278 K/mm3 (150-420); Red Blood Count 5.39 M/mm3 (4.20-5.40); Specific Grav Ur 1.025 (1.010-1.020); White Blood Count 9.6 K/mm3 (4.8-10.8)
[2025-07-07 14:46] LABS: Alanine Aminotransferase 20 U/L (6-35); Albumin Level 4.3 g/dL (3.5-5.1); Alkaline Phosphatase 97 U/L (38-126); Anion Gap 9 mmol/L (4-12); Aspartate Amino Transferase 25 U/L (14-36); Bilirubin,Total 0.6 mg/dL (0.2-1.3); Blood Urea Nitrogen 16 mg/dL (7-17); Calcium 9.2 mg/dL (8.4-10.2); Carbon Dioxide 30 mmol/L (22-30); Chloride 103 mmol/L (98-107); Cholesterol 155 mg/dL (0-200); Estimated Glomerular Filt Rate > 60; Glucose 99 mg/dL (65-110); HDL Direct 58 mg/dL; Osmolality Calculated 295 mOsm/kg (285-295); Potassium 3.7 mmol/L (3.4-5.0); Sodium 142 mmol/L (137-145); Total Protein 6.4 g/dL (6.3-8.2); Triglycerides 118 mg/dL (<150)
[2025-07-07 15:03] LABS: Free T4 Free Thyroxine 1.38 ng/dL (0.78-2.19)
[2025-07-07 15:17] LABS: Thyroid Stimulating Hormone 1.850 uIU/mL (0.465-4.680)
== END 2025-07-07 13:57 | disposition home or self-care (01) ==
PROVIDERS: PCP Internal Medicine; Visit Provider Nurse Practitioner Family
DX: E78.5 Hyperlipidemia, unspecified (principal); I10 Essential (primary) hypertension
CPT/HCPCS: 36415; 80053; 80061; 81001; 84439; 84443; 85027